=== PATIENT | female | born 1965 ===

== ENCOUNTER → 2018-01-18 18:12 | Outpatient (REF) | payer OTHER, SELFPAY ==
[2018-01-18 18:26] LABS: Iron 125 ug/dL (37-170)
[2018-01-18 19:02] LABS: Ferritin 66.7 ng/mL (11.1-264)
== END ==
LOC: LAB 18:12
PROVIDERS: Visit Provider Naturopath
DX: R53.81 Other malaise (principal)
CPT/HCPCS: 36415; 82728; 83540